=== PATIENT | male | born 1960 | race Hispanic/Latino ===

== ENCOUNTER 2016-09-17 12:20 | Emergency (ER) | payer MEDICAID ==
[2016-09-17 12:20] VITALS: BMI 35.9
[2016-09-17 12:40] VITALS: BP 177/122; PULSE 69; RESP 20; TEMP 98.2; O2SAT 95
--- NOTE | 2016-09-17 13:13 | ED PDOC ---
HPI: Skin/Bite Injury Time Seen by Provider: 09/17/16 12:48 Chief Complaint (Nursing): Abnormal Skin Integrity Chief Complaint (Provider): Rash - Itchy x 3 days History Per: Patient History/Exam Limitations: no limitations Onset/Duration Of Symptoms: Days (3) Current Symptoms Are (Timing): Still Present Location Of Injury: Right: Arm, Leg, Left: Arm, Face Quality Of Symptoms: Itching Severity: Moderate Additional Complaint(s): Pt reports rash which has been getting worse over the last 3 days. PT states he sleeps at a longterm and they have had bedbugs in the past. PT states they are itchy. Past Medical History Reviewed: Historical Data, Nursing Documentation, Vital Signs Vital Signs: Last Vital Signs Temp 98.2 F 09/17/16 12:36 Pulse 69 09/17/16 12:36 Resp 20 09/17/16 12:36 BP 177/122 H 09/17/16 12:36 Pulse Ox 95 09/17/16 12:36 - Medical History PMH: Bronchitis - Surgical History Surgical History: No Surg Hx - Family History Family History: States: Unknown Family Hx - Living Arrangements Living Arrangements: With Family - Social History Current smoker - smoking cessation education provided: No - Immunization History Hx Tetanus Toxoid Vaccination: No Hx Influenza Vaccination: No Hx Pneumococcal Vaccination: No - Home Medications Home Medications: Ambulatory Orders Medication Instructions Recorded Cyclobenzaprine [Cyclobenzaprine 10 mg PO Q8 PRN #20 tab 04/03/16 HCl] Ibuprofen [Motrin] 600 mg PO Q6 PRN #20 tab 04/03/16 Dicyclomine [Bentyl] 20 mg PO Q6H PRN #20 tab 09/17/16 predniSONE [predniSONE Tab] 20 mg PO DAILY #12 tab 09/17/16 - Allergies Allergies/Adverse Reactions: Allergies Allergy/AdvReac Type Severity Reaction Status Date / Time Anesthetics - Amide Type AdvReac ANAPHYLAXIS Verified 09/17/16 12:35 Review of Systems ROS Statement: Except As Marked, All Systems Reviewed And Found Negative Skin: Positive for: Rash Physical Exam - Reviewed Nursing Documentation Reviewed: Yes Vital Signs Reviewed: Yes - Physical Exam Appears: Positive for: Well, Non-toxic, No Acute Distress Head Exam: Positive for: ATRAUMATIC, NORMAL INSPECTION, NORMOCEPHALIC Skin: Positive for: Warm, Rash ((+) erythematous rash on the lower bilateral arms with areas of scabbing, (+) insect bites on the upper right are and face). Negative for: Normal Color Eye Exam: Positive for: Normal appearance ENT: Positive for: Normal ENT Inspection Neck: Positive for: Normal, Painless ROM Cardiovascular/Chest: Positive for: Regular Rate, Rhythm Respiratory: Positive for: Normal Breath Sounds. Negative for: Accessory Muscle Use, Respiratory Distress Back: Positive for: Normal Inspection Extremity: Positive for: Normal ROM Neurologic/Psych: Positive for: Alert, Oriented - ECG O2 Sat by Pulse Oximetry: 95 Disposition - Clinical Impression Clinical Impression: Insect bites - Patient ED Disposition Is Patient to be Admitted: No Counseled Patient/Family Regarding: Diagnosis, Need For Followup, Rx Given - Disposition Referrals: [facility] [Outside] Disposition: Routine/Home Disposition Time: 13:15 Condition: GOOD Prescriptions: Dicyclomine [Bentyl] 20 mg PO Q6H PRN #20 tab PRN Reason: Cramping predniSONE [predniSONE Tab] 20 mg PO DAILY #12 tab Instructions: Bed Bugs (ED)
== END 2016-09-17 13:50 | disposition home or self-care (01) ==
LOC: H.ER 12:20
DX: S00.86XA Insect bite (nonvenomous) of other part of head, initial encounter (principal); W57.XXXA Bitten or stung by nonvenomous insect and other nonvenomous arthropods, initial encounter; Y92.89 Other specified places as the place of occurrence of the external cause

== ENCOUNTER 2016-11-04 19:45 | Emergency (ER) | payer MEDICAID ==
[2016-11-04 19:46] VITALS: BMI 35.9
[2016-11-04 20:20] VITALS: BP 151/76; PULSE 70; RESP 16; TEMP 98.2; O2SAT 96
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
--- NOTE | 2016-11-04 23:49 | CT ---
EXAM: CT Thoracic Spine Without Intravenous Contrast CLINICAL HISTORY: 56 years old, male; Pain; Pain in thoracic spine; Additional info: T-spine pain with radiation to right arm TECHNIQUE: Axial computed tomography images of the thoracic spine without intravenous contrast. This CT exam was performed using one or more of the following dose reduction techniques: automated exposure control, adjustment of the mA and/or kV according to patient size, and/or use of iterative reconstruction technique. Coronal and sagittal reformatted images were created and reviewed. COMPARISON: No relevant prior studies available. FINDINGS: Vertebrae: Moderate degenerative disease, with osteophyte formation. Discs/spinal canal/neural foramina: Degenerative disease, with bridging osteophyte formation, disc space narrowing and endplate changes. This is most prominent within the mid to lower lumbar spine. Soft tissues: Trace nodular pleural thickening is identified within the bilateral upper lobes. The remainder of the visualized lungs are unremarkable. The soft tissues are symmetric. IMPRESSION: Moderate degenerative disease, as detailed above. No acute displaced fracture. Nodular pleural thickening within the bilateral upper lobes.
== END 2016-11-05 00:01 | disposition home or self-care (01) ==
LOC: H.ER 19:45
DX: M54.9 Dorsalgia, unspecified (principal)

== ENCOUNTER 2016-11-18 07:05 | Emergency (ER) | payer MEDICAID, OTHER ==
[2016-11-18 07:13] VITALS: O2SAT 98
[2016-11-18 07:14] VITALS: BMI 40.6
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
[2016-11-18 10:36] VITALS: BP 128/78; PULSE 78; RESP 20; TEMP 97.7
--- NOTE | 2016-11-18 11:36 | RAD ---
PROCEDURE: Radiographs of the Lumbar Spine. HISTORY: back pain COMPARISON: No prior. FINDINGS: BONES: No evidence of acute compression fractures nor retropulsed fragments. Other than minor multilevel fish-mouth endplate deformities. Pedicles appear intact Vertebral bodies otherwise exhibit normal stature. Vertebral bodies and facets normally aligned. DISC SPACES: Mild disc space narrowing seen at the L5-S1 and to a lesser degree posterior disc space margin at the L4-L5 and less of the L3-L4 levels. Small marginal anterolateral osteophyte formation seen at several levels. Facet joints are mildly hypertrophic L5-S1 through the L 3 L4 levels in decreasing order of severity OTHER FINDINGS: None. IMPRESSION: No acute fractures. Minor multilevel degenerative spondylosis as above
--- NOTE | 2016-11-18 11:37 | RAD ---
PROCEDURE: Left Knee Radiographs. No evidence HISTORY: Pain. COMPARISON: None. FINDINGS: BONES: No evidence of acute displaced fracture nor dislocation. . Osseous structures appear intact. JOINTS: Degenerative osteoarthritis. Joint spaces are relatively preserved however small to medium-sized marginal on medial osteophyte formation arising from the distal femoral condyle and medial tibial plateau. Slight spurring tibial spines. Patellofemoral osteophyte formation. Degenerative changes at the proximal tibiofibular articulation also noted. JOINT EFFUSION: Questionable trace joint effusion OTHER FINDINGS: None. IMPRESSION: Impression: No acute fractures. Degenerative osteoarthritis as above.
== END 2016-11-18 10:36 | disposition home or self-care (01) ==
LOC: H.ER 07:05
DX: M54.9 Dorsalgia, unspecified (principal); M25.562 Pain in left knee

== ENCOUNTER 2016-11-19 14:19 | Emergency (ER) | payer OTHER ==
[2016-11-19 14:19] VITALS: BMI 40.6
[2016-11-19 14:26] VITALS: BP 150/90; PULSE 86; RESP 18; TEMP 98.6; O2SAT 98
[2016-11-19] MEDS ORDERED: Lidocaine 1% Inj (20ml) ONE (15:27)
--- NOTE | 2016-11-19 16:14 | ED PDOC ---
Lower Extremity Pain/Injury Time Seen by Provider: 11/19/16 15:39 Chief Complaint (Nursing): Lower Extremity Problem/Injury Chief Complaint (Provider): left knee pain History Per: Patient History/Exam Limitations: no limitations Onset/Duration Of Symptoms: Days (x2) Current Symptoms Are (Timing): Still Present Additional Complaint(s): Julio C Cooper is a 56 year old male who presents to the emergency department with persistent left knee pain since his last ED visit yesterday. He was discharged with a prescription for Naproxen which has not alleviated his pain. Patient states when he walks he feels as if his knee is going to "give out" on him. Patient feels unsteady walking with a cane. Patient denies any falls since his last ED visit, denies fever or chills. Patient has an appt next week with an orthopedist but came today due to increasing pain. PMD: none provided Past Medical History Reviewed: Historical Data, Nursing Documentation, Vital Signs Vital Signs: Last Vital Signs Temp 98.6 F 11/19/16 14:23 Pulse 86 11/19/16 14:23 Resp 18 11/19/16 14:23 BP 150/90 11/19/16 14:23 Pulse Ox 98 11/19/16 14:23 - Medical History PMH: Back Problems, HTN, Chronic Pain (left knee) - Surgical History Other surgeries: right wrist surgery, right knee surgery - Family History Family History: States: No Known Family Hx - Living Arrangements Living Arrangements: With Friends/Others - Social History Current smoker - smoking cessation education provided: No Alcohol: Occasional Drugs: Denies - Immunization History Hx Tetanus Toxoid Vaccination: No Hx Influenza Vaccination: No Hx Pneumococcal Vaccination: No - Home Medications Home Medications: Ambulatory Orders Medication Instructions Recorded Cyclobenzaprine [Cyclobenzaprine 10 mg PO Q8 PRN #20 tab 04/03/16 HCl] Ibuprofen [Motrin] 600 mg PO Q6 PRN #20 tab 04/03/16 DiphenhydrAMINE [Benadryl] 50 mg PO Q6H PRN #20 cap 09/17/16 predniSONE [predniSONE Tab] 20 mg PO DAILY #12 tab 09/17/16 Cyclobenzaprine [Cyclobenzaprine 10 mg PO Q8H #20 tab 11/04/16 HCl] Naproxen [Naprosyn] 500 mg PO BID PRN #14 tablet 11/18/16 Prednisone 50 mg PO DAILY #5 tablet 11/19/16 Walker [Rolling Walker] 1 dev XX ASDIR #1 dev 11/19/16 traMADol [Ultram] 50 mg PO TID PRN #15 tab 11/19/16 - Allergies Allergies/Adverse Reactions: Allergies Allergy/AdvReac Type Severity Reaction Status Date / Time Anesthetics - Amide Type AdvReac ANAPHYLAXIS Verified 11/04/16 20:20 Wells Criteria for PE - Wells Criteria for Pulmonary Embolism Clinical Signs and Symptoms of DVT: No P.E is #1 Diagnosis, or Equally Likely: No Heart Rate >100: No Immobilization at least 3 days;Surgery previous 4 weeks: No Previous, objectively diagnosed PE or DVT: No Hemoptysis: No Malignancy w/treatment within 6 months, or palliative: No Total Score: 0 Review of Systems ROS Statement: Except As Marked, All Systems Reviewed And Found Negative Constitutional: Negative for: Fever, Chills Musculoskeletal: Positive for: Other (left knee pain) Physical Exam - Reviewed Nursing Documentation Reviewed: Yes Vital Signs Reviewed: Yes - Physical Exam Appears: Positive for: Well, Non-toxic, No Acute Distress Skin: Positive for: Normal Color. Negative for: Rash Extremity: Positive for: Normal ROM (left knee with pain), Tenderness (left knee ), Swelling (diffused around left knee). Negative for: Calf Tenderness Neurologic/Psych: Positive for: Alert, Oriented - ECG O2 Sat by Pulse Oximetry: 98 (RA) Pulse Ox Interpretation: Normal Medical Decision Making Medical Decision Making: Initial Impression: Chronic left knee pain Initial Plan: * SOLU-Medrol 125mg IM * Ultram 50mg PO Patient was seen for same complaint yesterday in ED, x-rays were completed. Patient has follow-up next week with orthopedics. He reports improvement to pain s/p meds given in ED Prescriptions given for tramadol and prednisone. Patient was advised to keep appointment with orthopedist. Prescription also given for a walker. Scribe Attestation: Documented by Kelly Deluca, acting as a scribe for Candy Esteban PA-C. Provider Scribe Attestation: All medical record entries made by the Scribe were at my direction and personally dictated by me. I have reviewed the chart and agree that the record accurately reflects my personal performance of the history, physical exam, medical decision making, and the department course for this patient. I have also personally directed, reviewed, and agree with the discharge instructions and disposition. Disposition - Clinical Impression Clinical Impression: Knee pain - Patient ED Disposition Is Patient to be Admitted: No Counseled Patient/Family Regarding: Studies Performed, Diagnosis, Need For Followup, Rx Given - Disposition Referrals: Adriana Farnsworth MD [Staff Provider] - Disposition: Routine/Home Disposition Time: 17:28 Condition: IMPROVED Additional Instructions: Ice, rest and elevate affected area. Take prescription as directed. Follow-up as soon as possible with orthopedist. Prescriptions: Prednisone 50 mg PO DAILY #5 tablet traMADol [Ultram] 50 mg PO TID PRN #15 tab PRN Reason: Pain, Moderate (4-7) Walker [Rolling Walker] 1 dev XX ASDIR #1 dev Instructions: Knee Pain (ED), Arthralgia (ED)
== END 2016-11-19 18:30 | disposition home or self-care (01) ==
LOC: H.ER 14:19
DX: M25.562 Pain in left knee (principal); G89.29 Other chronic pain; I10 Essential (primary) hypertension

== ENCOUNTER 2016-12-24 11:37 | Emergency (ER) | payer MEDICAID, OTHER ==
[2016-12-24 11:38] VITALS: BMI 40.6
[2016-12-24 11:50] VITALS: BP 162/76; PULSE 75; RESP 16; TEMP 99; O2SAT 96
--- NOTE | 2016-12-24 12:23 | ED PDOC ---
HPI: General Adult Time Seen by Provider: 12/24/16 12:23 Chief Complaint (Nursing): Dizziness/Lightheaded Chief Complaint (Provider): dizziness, bakc pain History Per: Patient Additional Complaint(s): 56-year-old male presents to emergency department with generalized weakness and dizziness that started earlier today. Patient has history of chronic back pain and leg pain and uses a walker at baseline. Today as of waking up he felt weakness in his legs and states he almost fell. Upon arrival patient states he feels lightheaded and feels as if the lightheadness gets worse if he leans forward. He also has associated facial pressure especially when leaning forward. No fever or chills, no chest pain, SOB or CORRALES. Patient currently takes naprosyn and flexeril for his chronic leg and back pain. He denies any acute bowel or bladder dysfunction. Patient states he has had similar episodes of dizziness and lightheadness in the past. He denies headache, vision changes or facial numbness. Past Medical History Reviewed: Historical Data, Nursing Documentation, Vital Signs Vital Signs: Last Vital Signs Temp 99.0 F 12/24/16 11:46 Pulse 75 12/24/16 11:46 Resp 16 12/24/16 11:46 BP 162/76 H 12/24/16 11:46 Pulse Ox 96 12/24/16 15:38 - Medical History PMH: Back Problems, HTN, Chronic Pain (back, left knee) - Surgical History Surgical History: Tonsillectomy Other surgeries: right hand surgery, right knee surgery, FB removal from throat - Family History Family History: States: No Known Family Hx, Unknown Family Hx - Living Arrangements Living Arrangements: Other (lives in [facility] in [place]) - Social History Current smoker - smoking cessation education provided: No Alcohol: None Drugs: Denies - Home Medications Home Medications: Ambulatory Orders Medication Instructions Recorded Cyclobenzaprine [Cyclobenzaprine 10 mg PO Q8 PRN #20 tab 04/03/16 HCl] Ibuprofen [Motrin] 600 mg PO Q6 PRN #20 tab 04/03/16 DiphenhydrAMINE [Benadryl] 50 mg PO Q6H PRN #20 cap 09/17/16 predniSONE [predniSONE Tab] 20 mg PO DAILY #12 tab 09/17/16 Cyclobenzaprine [Cyclobenzaprine 10 mg PO Q8H #20 tab 11/04/16 HCl] Naproxen [Naprosyn] 500 mg PO BID PRN #14 tablet 11/18/16 Prednisone 50 mg PO DAILY #5 tablet 11/19/16 Walker [Rolling Walker] 1 dev XX ASDIR #1 dev 11/19/16 traMADol [Ultram] 50 mg PO TID PRN #15 tab 11/19/16 Cyclobenzaprine [Cyclobenzaprine 10 mg PO TID PRN #20 tab 12/24/16 HCl] - Allergies Allergies/Adverse Reactions: Allergies Allergy/AdvReac Type Severity Reaction Status Date / Time Anesthetics - Amide Type AdvReac ANAPHYLAXIS Verified 11/04/16 20:20 Review of Systems ROS Statement: Except As Marked, All Systems Reviewed And Found Negative Constitutional: Positive for: Weakness. Negative for: Fever, Chills Cardiovascular: Positive for: Light Headedness. Negative for: Chest Pain Respiratory: Negative for: Cough Gastrointestinal: Negative for: Nausea, Vomiting Neurological: Positive for: Weakness, Dizziness. Negative for: Change in Speech , Confusion, Seizures Physical Exam - Reviewed Nursing Documentation Reviewed: Yes Vital Signs Reviewed: Yes - Physical Exam Appears: Positive for: Well, Non-toxic, No Acute Distress Skin: Negative for: Rash Eye Exam: Positive for: Normal appearance, EOMI, PERRL Cardiovascular/Chest: Positive for: Regular Rate, Rhythm Respiratory: Positive for: Normal Breath Sounds. Negative for: Respiratory Distress Gastrointestinal/Abdominal: Positive for: Other (obese non-tender abdomen). Negative for: Guarding, Rebound Back: Positive for: Vertebral Tenderness (diffuse tenderness lumbar region) Extremity: Positive for: Normal ROM. Negative for: Pedal Edema Neurologic/Psych: Positive for: Alert, systems navigator II-XII (grossly intact), Oriented. Negative for: Motor/Sensory Deficits, Aphasia, Facial Droop - Laboratory Results Result Diagrams: 12/24/16 12:54 12/24/16 13:00 - ECG Interpretation Of ECG: NSR 65 bpm, RBBB, reviewed by PA and ED attending. O2 Sat by Pulse Oximetry: 96 Pulse Ox Interpretation: Normal - Other Rad Head CT X-Ray: Read By Radiologist X-Ray Interpretation: no acute finding bedside chest X-Ray: Interpreted by Me, Viewed By Me X-Ray Interpretation: no acute finding Medical Decision Making Medical Decision Makin56 year old with dizziness and lightheadedness Plan: EKG CXR CT head CBC CMP Trop UA IVF PO tylenol Patient is aware of all diagnostic testing results. All questions answered. Patient was able to ambulate to bathroom with steady gait. He states dizziness now resolved. Patient states he is out of Flexeril and was given prescription. Toradol IV administered in ED prior to discharge. Patient was instructed to follow up with PMD in 1-2 days and he is aware he can RTED at any time if acutely worse. Disposition - Clinical Impression Clinical Impression: Dizziness, Chronic back pain - Patient ED Disposition Is Patient to be Admitted: No Counseled Patient/Family Regarding: Studies Performed, Diagnosis, Need For Followup, Rx Given - Disposition Referrals: [facility] [Outside] Disposition: Routine/Home Disposition Time: 15:29 Condition: IMPROVED Additional Instructions: Take prescription meds as directed. Drink pplenty of fluids. Follow-up with primary doctor in 1-2 days. Return to emergency department any time if acutely worse. Prescriptions: Cyclobenzaprine [Cyclobenzaprine HCl] 10 mg PO TID PRN #20 tab PRN Reason: Muscle Spasm Instructions: Dizziness (ED), Chronic Back Pain (ED) Forms: [employer] (Spanish) Results - Lab Results Lab Results: 12/24/16 12/24/16 12/24/16 14:54 13:00 12:54 WBC 7.5 RBC 4.84 Hgb 13.3 Hct 39.2 MCV 80.9 MCH 27.5 MCHC 34.0 RDW 15.5 H Plt Count 215 MPV 8.2 Neut % (Auto) 65.8 Lymph % (Auto) 18.6 L [place] % (Auto) 12.0 H Eos % (Auto) 2.8 Baso % (Auto) 0.8 Neut # 5.0 Lymph # 1.4 [place] # 0.9 H Eos # 0.2 Baso # 0.1 Sodium 142 Potassium 4.1 Chloride 108 H Carbon Dioxide 25 Anion Gap 13 BUN 18 Creatinine 0.9 Est GFR ( Amer) > 60 Est GFR (Non-Af Amer) > 60 Random Glucose 98 Calcium 9.0 Total Bilirubin 1.1 AST 32 ALT 49 Alkaline Phosphatase 94 Troponin I < 0.0120 Total Protein 6.9 Albumin 3.9 Globulin 3.0 Albumin/Globulin Ratio 1.3 Urine Color Yellow Urine Clarity Slighty-cloudy Urine pH 5.0 Ur Specific [place] 1.024 Urine Protein 30 Urine Glucose (UA) Neg Urine Ketones Negative Urine Blood Negative Urine Nitrate Negative Urine Bilirubin Negative Urine Urobilinogen 0.2-1.0 Ur Leukocyte Esterase Neg Urine RBC (Auto) 3 Urine Microscopic WBC 1 Ur Squamous Epith Cells < 1
[2016-12-24] MEDS ORDERED: Sodium Chloride 0.9% 1,000 ML IV STA (12:30)
[2016-12-24 13:14] LABS: BASO # 0.1 K/uL (0.0-0.2); BASO % 0.8 % (0.0-2.0); EOS # 0.2 K/uL (0.0-0.7); EOS % 2.8 % (0.0-4.0); HEMOGLOBIN 13.3 g/dL (12.0-18.0); LYMPH # 1.4 K/uL (1.0-4.3); LYMPH % 18.6 % (20.0-40.0); MEAN CELL VOLUME 80.9 fl (80.0-94.0); MEAN CORPUSCULAR HEMOGLOBIN 27.5 pg (27.0-31.0); MEAN PLATELET VOLUME 8.2 fl (7.2-11.7); MONO # 0.9 K/uL (0.0-0.8); NEUT % 65.8 % (50.0-75.0); RBC 4.84 Mil/uL (4.40-5.90); RED CELL DISTRIBUTION WIDTH 15.5 % (11.5-14.5); WHITE BLOOD COUNT 7.5 K/uL (4.8-10.8)
[2016-12-24 13:40] LABS: ALB/GLOB RATIO 1.3 (1.0-2.1); ALBUMIN 3.9 g/dL (3.5-5.0); ALT/SGPT 49 U/L (21-72); AST/SGOT 32 U/L (17-59); BLOOD UREA NITROGEN 18 mg/dl (9-20); GFR AFRICAN-AMERICAN > 60; GFR NON-AFRICAN AMERICAN > 60
--- NOTE | 2016-12-24 14:15 | CT ---
PROCEDURE: CT HEAD WITHOUT CONTRAST. HISTORY: dizziness, lightheaded COMPARISON: None available. TECHNIQUE: Axial computed tomography images were obtained through the head/brain without intravenous contrast. Radiation dose: Total exam DLP = 1119.55 MGy-cm. This CT exam was performed using one or more of the following dose reduction techniques: Automated exposure control, adjustment of the mA and/or kV according to patient size, and/or use of iterative reconstruction technique. FINDINGS: HEMORRHAGE: No intracranial hemorrhage. BRAIN: Mckeon-white matter differentiation is preserved. There is no mass, mass effect or abnormal extra-axial fluid collection. VENTRICLES: The ventricles are normal in size, shape and configuration. CALVARIUM: The skull base and calvarium are normal. PARANASAL SINUSES: Predominantly clear. MASTOID AIR CELLS: Predominantly clear. OTHER FINDINGS: None. IMPRESSION: No acute intracranial abnormality.
--- NOTE | 2016-12-24 14:27 | RAD ---
HISTORY: clearance COMPARISON: No prior. FINDINGS: LUNGS: There is mild pulmonary venous congestion. No focal consolidation. PLEURA: No significant pleural effusion identified, no pneumothorax apparent. CARDIOVASCULAR: Normal. OSSEOUS STRUCTURES: No significant abnormalities. VISUALIZED UPPER ABDOMEN: Normal. OTHER FINDINGS: None. IMPRESSION: No active pulmonary disease.
[2016-12-24 15:03] LABS: SQUAMOUS EPITHIAL < 1 /hpf (0-5); URINE BILIRUBIN NEGATIVE (NEGATIVE); URINE BLOOD NEGATIVE (NEGATIVE); URINE CLARITY SLIGHTY-CLOUDY (Clear); URINE COLOR YELLOW (YELLOW); URINE GLUCOSE (UA) NEG (Normal); URINE LEUKOCYTE ESTERASE NEG Leu/uL (Negative); URINE NITRATE NEGATIVE (NEGATIVE); URINE PROTEIN 30 mg/dL (NEGATIVE); URINE UROBILINOGEN 0.2-1.0 mg/dL (0.2-1.0)
--- NOTE | 2016-12-24 15:50 | CARD ---
APPROVED REPORT EKG Measurement Heart [id number] <Conclusion> Normal sinus rhythm Right bundle branch block Abnormal ECG
== END 2016-12-24 15:56 | disposition home or self-care (01) ==
LOC: H.ER 11:37
DX: M54.9 Dorsalgia, unspecified (principal); G89.29 Other chronic pain; R42 Dizziness and giddiness; I10 Essential (primary) hypertension

== ENCOUNTER 2017-04-16 01:10 | Emergency (ER) | payer MEDICAID, OTHER ==
[2017-04-16 01:10] VITALS: BMI 40.6
[2017-04-16 01:26] VITALS: BP 179/94; PULSE 106; RESP 20; TEMP 99.7; O2SAT 95
--- NOTE | 2017-04-16 02:17 | ED PDOC ---
HPI: General Adult Time Seen by Provider: 04/16/17 01:34 Chief Complaint (Nursing): Flu-like Symptoms Chief Complaint (Provider): Flu-like Symptoms History Per: Patient History/Exam Limitations: no limitations Onset/Duration Of Symptoms: Days (x2-3 days) Current Symptoms Are (Timing): Still Present Recently: Treated By A Physician Additional Complaint(s): 56 year old male presents to ED with complaints of cold/flu-like symptoms x2-3 days and has a past medical history of pre-diabetes, stage 2 kidney disease, bronchitis, and HTN. (+) wheezing, hemoptysis, mucous production, subjective fever, lightheadedness, intermittent SOB, and dizziness. (-) chest pain , syncope, or leg swelling. Provider believes patient is homeless and malingering. PCP: None Past Medical History Reviewed: Historical Data, Nursing Documentation, Vital Signs Vital Signs: Last Vital Signs Temp 99.7 F H 04/16/17 01:22 Pulse 106 H 04/16/17 01:22 Resp 20 04/16/17 01:22 BP 179/94 H 04/16/17 01:22 Pulse Ox 95 04/16/17 02:29 - Medical History PMH: Back Problems, Bronchitis, Diabetes (pre-DM), HTN, Chronic Pain (back, left knee) - Surgical History Surgical History: Tonsillectomy - Family History Family History: States: Unknown Family Hx - Social History Current smoker - smoking cessation education provided: No Ex-Smoker (has not smoked in the last 12 months): No - Immunization History Hx Tetanus Toxoid Vaccination: No Hx Influenza Vaccination: No Hx Pneumococcal Vaccination: No - Home Medications Home Medications: Ambulatory Orders Medication Instructions Recorded Cyclobenzaprine [Cyclobenzaprine 10 mg PO Q8 PRN #20 tab 04/03/16 HCl] Naproxen [Naprosyn] 500 mg PO BID PRN #14 tablet 11/18/16 traMADol [Ultram] 50 mg PO TID PRN #15 tab 11/19/16 Bp Med 03/03/17 Heart Med 03/03/17 Ibuprofen [Motrin] 600 mg PO Q6 #30 tab 03/03/17 Albuterol HFA [Ventolin HFA 90 2 puff IH [id number] #1 inh 04/16/17 mcg/actuation (8 g)] Azithromycin [Z-Rubens] 250 mg PO ASDIR #6 tab 04/16/17 - Allergies Allergies/Adverse Reactions: Allergies Allergy/AdvReac Type Severity Reaction Status Date / Time Anesthetics - Amide Type AdvReac difficult Verified 04/16/17 01:22 to wake Review of Systems ROS Statement: Except As Marked, All Systems Reviewed And Found Negative Constitutional: Positive for: Fever (subjective) Respiratory: Positive for: Shortness of Breath, Hemoptysis, Sputum, Wheezing Neurological: Positive for: Dizziness Physical Exam - Reviewed Nursing Documentation Reviewed: Yes Vital Signs Reviewed: Yes - Physical Exam Appears: Positive for: Well, Non-toxic, No Acute Distress Head Exam: Positive for: ATRAUMATIC, NORMOCEPHALIC Skin: Positive for: Normal Color, Warm, Dry Eye Exam: Positive for: EOMI, Normal appearance, PERRL ENT: Positive for: Normal ENT Inspection Neck: Positive for: Normal, Painless ROM, Supple Cardiovascular/Chest: Positive for: Regular Rate, Rhythm. Negative for: Murmur Respiratory: Positive for: Normal Breath Sounds. Negative for: Respiratory Distress Gastrointestinal/Abdominal: Positive for: Soft. Negative for: Tenderness Back: Positive for: Normal Inspection Extremity: Positive for: Normal ROM. Negative for: Deformity Neurologic/Psych: Positive for: Alert, Oriented. 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 Provider explained to patient that positioning is a liability and that commercial lines manager must readjust/wake up. Scribe Attestation: Documented by Sadie Mims acting as a scribe for Ronna Hays MD. Scribe Attestation: All medical record entries made by the Scribe were at my direction and personally dictated by me. I have reviewed the chart and agree that the record accurately reflects my personal performance of the history, physical exam, medical decision making, and the department course for this patient. I have also personally directed, reviewed, and agree with the discharge instructions and disposition. Disposition - Clinical Impression Clinical Impression: Dizziness, Cough, Bronchitis - Patient ED Disposition Is Patient to be Admitted: No Counseled Patient/Family Regarding: Studies Performed, Diagnosis - Disposition Referrals: [facility] [Outside] Disposition: Routine/Home Disposition Time: 06:30 Condition: GOOD Additional Instructions: Take your medications as instructed. Follow up with your PCP in 2-3 days. Prescriptions: Albuterol HFA [Ventolin HFA 90 mcg/actuation (8 g)] 2 puff IH [id number] #1 inh Azithromycin [Z-Rubens] 250 mg PO ASDIR #6 tab Instructions: Acute Bronchitis (ED), Dizziness (ED)
[2017-04-16 03:39] LABS: BASO % 0.3 % (0.0-2.0); EOS # 0.3 K/uL (0.0-0.7); EOS % 3.5 % (0.0-4.0); HEMATOCRIT 45.4 % (35.0-51.0); LYMPH # 1.7 K/uL (1.0-4.3); MEAN CORPUSCULAR HEMOGLOBIN 26.2 pg (27.0-31.0); MEAN CORPUSCULAR HGB CONC 32.7 g/dL (33.0-37.0); MEAN PLATELET VOLUME 8.3 fl (7.2-11.7); MONO # 1.3 K/uL (0.0-0.8); MONO % 12.7 % (0.0-10.0); NEUT # 6.6 K/uL (1.8-7.0); NEUT % 66.5 % (50.0-75.0); NRBC % 0.1 % (0.0-0.0); RED CELL DISTRIBUTION WIDTH 14.7 % (11.5-14.5); WHITE BLOOD COUNT 9.9 K/uL (4.8-10.8)
[2017-04-16 03:44] LABS: BLOOD UREA NITROGEN 16 mg/dl (9-20); CARBON DIOXIDE 23 mmol/L (22-30); CHLORIDE 106 mmol/L (98-107); GFR AFRICAN-AMERICAN > 60; GLUCOSE,RANDOM 112 mg/dL (75-110); POTASSIUM 4.1 MMOL/L (3.6-5.0); SODIUM 139 mmol/l (132-148)
--- NOTE | 2017-04-16 06:06 | RAD ---
HISTORY: Cough COMPARISON: 12/24/2016 TECHNIQUE: Chest PA and lateral FINDINGS: LUNGS: Hyperinflation, manifestations of COPD. No active pulmonary disease. PLEURA: No significant pleural effusion identified. No pneumothorax apparent. CARDIOVASCULAR: No radiographic findings to suggest acute or significant cardiovascular disease. OSSEOUS STRUCTURES: No significant abnormalities. VISUALIZED UPPER ABDOMEN: Normal. OTHER FINDINGS: None. IMPRESSION: No active disease. No significant interval change compared to the prior examination(s).
--- NOTE | 2017-04-16 12:33 | CARD ---
APPROVED REPORT EKG Measurement Heart [id number] <Conclusion> Unusual P axis, possible ectopic atrial rhythm Right bundle branch block T wave abnormality, consider inferior ischemia Abnormal ECG
== END 2017-04-16 05:45 | disposition home or self-care (01) ==
LOC: H.ER 01:10
DX: J40 Bronchitis, not specified as acute or chronic (principal); R05 Cough; R42 Dizziness and giddiness; G89.29 Other chronic pain; I10 Essential (primary) hypertension; R73.03 Prediabetes; Z59.0 Homelessness; Z87.891 Personal history of nicotine dependence